=== PATIENT | male | born 1945 | race Caucasian/White ===

== ENCOUNTER → 2017-03-19 | Outpatient (CLI) | payer MEDICARE, OTHER | LOC: GMAB 10:25 | PROVIDERS: ATTEND Family Medicine | DX: I10 Essential (primary) hypertension (principal); Z12.5 Encounter for screening for malignant neoplasm of prostate; E11.9 Type 2 diabetes mellitus without complications; E78.2 Mixed hyperlipidemia | CPT/HCPCS: 84443; G0103 ==

== ENCOUNTER → 2017-07-07 | Outpatient (CLI) | payer MEDICARE, OTHER ==
--- NOTE | 2017-07-08 14:11 | RAD ---
EXAM DESCRIPTION: KUB CLINICAL HISTORY: 72 years Male, SOLITARY LEFT KIDNEY COMPARISON: February 27, 2015 IMPRESSION: Single AP supine view of the abdomen shows a nonspecific, nonobstructive bowel gas pattern. Increased amount of formed fecal material in the right transverse colon suggest mild constipation or obstipation. Surgical clips in the right upper quadrant suggest previous cholecystectomy. Degenerative changes of the spine are seen. No abnormal calcifications are seen in the expected location of the kidneys or ureters. Electronically signed by: Nate Wilkins MD 07/08/2017 2:09 PM [facility]
== END ==
LOC: RAD 14:59
PROVIDERS: ATTEND Urology
DX: Q60.0 Renal agenesis, unilateral (principal)

== ENCOUNTER → 2018-02-14 | Outpatient (CLI) | payer MEDICARE, OTHER | LOC: LAB.O 10:14 | PROVIDERS: ATTEND Nurse Practitioner Family | DX: E11.9 Type 2 diabetes mellitus without complications (principal) ==

== ENCOUNTER → 2018-03-23 | Outpatient (CLI) | payer MEDICARE, OTHER | LOC: GMAE 10:59 | PROVIDERS: ATTEND Family Medicine | DX: E83.52 Hypercalcemia (principal); I10 Essential (primary) hypertension; E11.9 Type 2 diabetes mellitus without complications ==

== ENCOUNTER → 2018-05-05 | Outpatient (CLI) | payer MEDICARE, OTHER ==
--- NOTE | 2018-05-05 09:37 | US ---
EXAM DESCRIPTION: Aorta: Ultrasound. CLINICAL HISTORY: ENCOUNTER FOR SCREENING COMPARISON: None. TECHNIQUE: Transcutaneous scanning: Two-dimensional and Doppler modes. FINDINGS: Abdominal aorta diameter (cm) Proximal: 2.6 x 2.5. Mid: 2.4 x 2.3. Distal: 2.1 x 2.0. Common Iliac diameter (mm) Right: 9. Left: 14. Other: Minimal intimal irregularity in the aorta.. IMPRESSION: No abdominal aortic aneurysm. Mild ectasia of the proximal segment. Minimal dilation of the left common iliac artery. Intimal atherosclerotic changes. Electronically signed by: Edd Powell MD 05/05/2018 9:36 AM CDT
== END ==
LOC: US 08:30
PROVIDERS: ATTEND Family Medicine
DX: Z13.9 Encounter for screening, unspecified (principal); I77.819 Aortic ectasia, unspecified site

== ENCOUNTER → 2019-03-30 | Outpatient (CLI) | payer MEDICARE, OTHER | LOC: GMAE 11:20 | PROVIDERS: ATTEND Family Medicine | DX: I10 Essential (primary) hypertension (principal); E11.9 Type 2 diabetes mellitus without complications; Z12.5 Encounter for screening for malignant neoplasm of prostate | CPT/HCPCS: 84443; 84550; G0103 ==

== ENCOUNTER → 2020-05-05 | Outpatient (CLI) | payer MEDICARE, OTHER | LOC: GMAE 10:59 | PROVIDERS: ATTEND Family Medicine | DX: Z12.5 Encounter for screening for malignant neoplasm of prostate (principal); I10 Essential (primary) hypertension; Z79.899 Other long term (current) drug therapy; E78.2 Mixed hyperlipidemia; M10.9 Gout, unspecified | CPT/HCPCS: 84443; 84550; G0103 ==